=== PATIENT | male | born 1925 | race Caucasian/White ===

== ENCOUNTER 2017-02-25 10:02 | Emergency (ER) | payer MEDICARE, OTHER ==
[2017-02-25 10:09] VITALS: BP 125/73
--- NOTE | 2017-02-25 10:17 | EDM.PDOC ---
ED HPI GENERAL MEDICAL PROBLEM - General Chief Complaint: General Stated Complaint: fall, back pain Time Seen by Provider: 02/25/17 10:17 Source of Information: Reports: Patient, Skilled Nursing Records (Limited), Old Records ([facility] EMR. No paper hospital chart available.) History Limitations: Reports: Altered Mental Status - History of Present Illness INITIAL COMMENTS - FREE TEXT/NARRATIVE: The patient was brought to the emergency room via transport vehicle from [facility] in [place] for evaluation of nonspecific upper bilateral lumbar pain. The patient was found on the floor next to his bed by care home staff with the patient stating that he apparently rolled out of bed. He is an extremely poor historian secondary to his Alzheimer's disease. He denies any significant head injury, loss of consciousness, change in mental status, paresthesias, neurological deficits, nausea/emesis, neck/back pain, or other complaints or injuries. Vital signs were stable at time of transfer to this facility. The patient denies any chest pain/pressure, heart flutter, dizziness, orthostasis, orthopnea, diaphoresis, paresthesias, recent decreased exercise tolerance, or any other anginal-type symptoms. No recent history of abdominal pain, heartburn, nausea, diarrhea, melena, gross hematochezia, or any food intolerance, including fatty foods, etc.. The patient also denies any recent fever, cough, wheezing, dyspnea, etc.. Onset: Today, Unknown/Unsure Onset Date: 02/25/17 Duration: Intermittent Location: Reports: Back. Denies: Head, Chest, Pelvis, Upper Extremity, Left, Upper Extremity, Right, Lower Extremity, Left, Lower Extremity, Right, Generalized, Radiates to, Other Quality: Reports: Ache, Same as Previous Episode, Stabbing Severity: Moderate Improves with: Reports: Rest Worsens with: Reports: Movement Context: Reports: Other (As above) Associated Symptoms: Reports: Confusion (Stable chronic). 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) (None) lt back pain Pain Score (Numeric/FACES): 5 - Related Data Allergies Allergy/AdvReac Type Severity Reaction Status Date / Time No Known Allergies Allergy Verified 02/25/17 10:09 Home Meds: Home Meds Acetaminophen [Tylenol Arthritis] 1 tab PO BID@1000,1800 02/25/17 [History] Ascorbate Calcium [Vitamin C] 500 mg PO DAILY@1000 02/25/17 [History] Aspirin/Dipyridamole [Aggrenox 200-25 MG] 1 cap PO BID@1000,1800 02/25/17 [ History] Carvedilol [Coreg] 6.25 mg PO BID@1000,1800 02/25/17 [History] Docusate Sodium 200 mg PO DAILY@1000 02/25/17 [History] Docusate Sodium [Colace] 1 cap PO QPM 02/25/17 [History] Donepezil HCl [Aricept] 10 mg PO QPM 02/25/17 [History] Imiquimod 1 applic TOP Q72H 02/25/17 [History] Levothyroxine [Synthroid] 1 tab PO DAILY@1000 02/25/17 [History] Lisinopril 2.5 mg PO DAILY@1000 02/25/17 [History] Multivitamin [Daily Alyssa] 1 tab PO DAILY@1000 02/25/17 [History] Simvastatin [Zocor] 80 mg PO QPM 02/25/17 [History] Thiamine [Vitamin B-1] 100 mg PO DAILY@1000 02/25/17 [History] metFORMIN [Glucophage] 500 mg PO BID@1000,1800 02/25/17 [History] Past Medical History HEENT History: Reports: Allergic Rhinitis, Hard of Hearing, Impaired Vision, Other (See Below) Other HEENT History: Patient wears glasses Cardiovascular History: Reports: High Cholesterol, Hypertension, PVD, Other ( See Below) Other Cardiovascular History: Bilateral carotid occlusive disease Respiratory History: Reports: Sleep Apnea Genitourinary History: Reports: Chronic Renal Insuffiency, Other (See Below) Other Genitourinary History: Stage III renal insufficiency, diabetic nephropathy Musculoskeletal History: Reports: Osteoarthritis, Osteoporosis Neurological History: Reports: Alzheimers Disease, Parkinson's, TIA Psychiatric History: Reports: Dementia Endocrine/Metabolic History: Reports: Hypothyroidism, Osteoporosis Hematologic History: Reports: Anemia Oncologic (Cancer) History: Reports: Other (See Below) Other Oncologic History: Unknown type of skin cancer Dermatologic History: Reports: Other (See Below) (Actinic keratosis) Social & Family History - Living Situation & Occupation Living situation: Reports: Extended Care Facility ([facility] in [place], skilled care) Occupation: Retired ED ROS GENERAL - Review of Systems Review Of Systems: ROS reveals no pertinent complaints other than HPI. ED EXAM, GENERAL - Physical Exam Exam: See Below Exam Limited By: Altered Mental Status General Appearance: Alert, WD/WN, No Apparent Distress Eye Exam: Right Eye: PERRL (Moderate miosis of the right pupil which is 12 millimeters inside with left pupil about 3 mm in size, moderate bilateral arcus senilis), Bilateral Eye: EOMI, Normal Fundi (Exam difficult secondary to myosis) Ears: Normal Canal, Normal TMs, Hearing Loss (No hearing aids) Nose: Normal Inspection, Normal Mucosa, No Blood Throat/Mouth: Normal Inspection, Normal Lips, Normal Gums, Normal Oropharynx, Normal Voice, No Airway Compromise. No: Normal Teeth (Complete absent lower dentition with no dentures today), Dysphagia, Perioral Cyanosis Head: Atraumatic, Normocephalic. No: Facial Swelling, Facial Tenderness, Sinus Tenderness Neck: Normal Inspection, Supple, Non-Tender, Full Range of Motion. No: Lymphadenopathy (L), Lymphadenopathy (R), Thyromegaly Respiratory/Chest: No Respiratory Distress, Lungs Clear, Normal Breath Sounds, No Accessory Muscle Use, Chest Non-Tender. No: Pleural Rub, Retractions Cardiovascular: Normal Peripheral Pulses, Regular Rate, Rhythm, No Edema, No Gallop, No JVD, No Murmur, No Rub. No: Gallop/S3, Gallop/S4, Friction Rub Peripheral Pulses: 2+: Radial (L), Radial (R), Dorsalis Pedis (L), Dorsalis Pedis (R) GI/Abdominal: Normal Bowel Sounds, Soft, Non-Tender, No Organomegaly, No Distention, No Abnormal Bruit, No Mass, Pelvis Stable. No: Guarding (Male) Exam: Deferred Rectal (Males) Exam: Deferred Back Exam: Full Range of Motion, Paraspinal Tenderness (Mild bilateral paravertebral palpation pain in the upper lumbar region with no deformity or significant spasms). No: CVA Tenderness (L), CVA Tenderness (R), Muscle Spasm, Vertebral Tenderness Extremities: Normal Range of Motion, Non-Tender, Normal Capillary Refill, Pedal Edema (Mild bilateral trace to +1 pedal/pretibial edema with bilateral compression stockings of the lower extremities, 1 cm in diameter superficial abrasion over the left olecranon with no localized tenderness, foreign body, etc.). No: Trena's Sign Neurological: Alert, CN II-XII Intact, Normal Reflexes (Negative Babinski's), No Motor/Sensory Deficits, Confused (Stable by history) Psychiatric: Normal Affect, Normal Mood Skin Exam: Wound/Incision. No: Cyanosis, Diaphoretic, Ecchymosis, Pallor, Petechiae Lymphatic: No Adenopathy Course - Vital Signs Last Recorded V/S: Last Vital Signs Temp 36.1 C 02/25/17 10:03 Pulse 80 02/25/17 10:03 Resp 18 02/25/17 10:03 BP 125/73 02/25/17 10:03 Pulse Ox 97 02/25/17 10:03 Vital Signs - 24 hr 02/25/17 10:03 Temperature [ 36.1 C Temporal] Pulse, 80 Peripheral [ Left Pulse Oximetry] Respiratory 18 Rate Blood Pressure 125/73 [Left Upper Arm ] O2 Sat by Pulse 97 Oximetry - Orders/Labs/Meds Orders: Active Orders 24 hr Category Date Time Status Lumbar Spine 2 or 3V [CR] Stat Exams 02/25/17 10:21 Taken Pelvis 1V or 2V [CR] Stat Exams 02/25/17 10:22 Taken Obtain Past Medical Record [OM.PC] Routine Oth 02/25/17 10:21 Active Labs: None Meds: None - Radiology Interpretation Free Text/Narrative:: X-rays of the lumbar spine, 3 views, shows moderate to severe osteoarthritic and osteoporotic changes including probable old L5 vertebral body compression fracture. Only mild decreased lordosis present X-rays of the pelvis, one view, shows no evidence of fracture or dislocation with moderate osteoarthritic changes noted including bilateral coxarthrosis Departure - Departure Time of Disposition: 12:45 Disposition: DC/Tfer to [facility] Condition: Good Clinical Impression: Alzheimers disease, Hypertension, Diabetes mellitus, Diabetic nephropathy, Hyperlipidemia, Parkinsons disease, Sleep apnea Contusion Qualifiers: Encounter type: initial encounter Contusion area: lower back Qualified Code(s) : S30.0XXA - Contusion of lower back and pelvis, initial encounter Low back pain Qualifiers: Chronicity: acute Back pain laterality: bilateral Sciatica presence: without sciatica Qualified Code(s): M54.5 - Low back pain Osteoarthritis Qualifiers: Osteoarthritis location: multiple joints Osteoarthritis type: primary Qualified Code(s): M15.0 - Primary generalized (osteo)arthritis - Discharge Information Instructions: Contusion, [id number], Head Injury, Adult Referrals: Sheets-Josselin Lyman MD [Primary Care Provider] - Forms: ED Department Discharge Additional Instructions: 1. Follow up with your regular provider in 10-14 days as needed, if symptoms persist. 2. BenGay or equivalent, heating pad, and/or ice packs as directed. 3. Tylenol 650 mg by mouth every 4 hours and/or OTC ibuprofen 2-3 tabs by mouth every 6 hours with food as directed./needed. 4. Continue strict fall precautions 5. Head precautions as directed-see form. - Problem List & Annotations (1) Contusion SNOMED Code(s): 451680549 Code(s): T14.8 - OTHER INJURY OF UNSPECIFIED BODY REGION Status: Acute Priority: High Onset Date: 02/25/17 Annotation/Comment:: Mild contusion of the left elbow and low back with probable mild low back sprain with no significant spasms at this time. Symptomatic relief. No x-rays warranted for the left elbow Qualifiers: Encounter type: initial encounter Contusion area: lower back Qualified Code(s): S30.0XXA - Contusion of lower back and pelvis, initial encounter (2) Low back pain SNOMED Code(s): 192071845 Code(s): M54.5 - LOW BACK PAIN Status: Acute Priority: High Onset Date : 02/25/17 Annotation/Comment:: Minor fall as above. Symptomatic relief as per discharge instructions. No Flexeril or other antispasmodic at this time secondary to patient's baseline organic brain syndrome and risk of fall Qualifiers: Chronicity: acute Back pain laterality: bilateral Sciatica presence: without sciatica Qualified Code(s): M54.5 - Low back pain (3) Osteoarthritis SNOMED Code(s): 283473756 Code(s): M19.90 - UNSPECIFIED OSTEOARTHRITIS, UNSPECIFIED SITE Status: Chronic Priority: Medium Annotation/Comment:: Otherwise stable by patient history Qualifiers: Osteoarthritis location: multiple joints Osteoarthritis type: primary Qualified Code(s): M15.0 - Primary generalized (osteo)arthritis (4) Alzheimers disease SNOMED Code(s): 72428850 Code(s): G30.9 - ALZHEIMER'S DISEASE, UNSPECIFIED Status: Chronic Priority: Medium Annotation/Comment:: Stable by history and under medical therapy Qualifiers: Alzheimer's disease onset: unspecified onset Dementia behavioral disturbance: without behavioral disturbance Qualified Code(s): G30.9 - Alzheimer's disease, unspecified; F02.80 - Dementia in other diseases classified elsewhere without behavioral disturbance (5) Diabetes mellitus SNOMED Code(s): 24396852 Code(s): E11.9 - TYPE 2 DIABETES MELLITUS WITHOUT COMPLICATIONS Status: Chronic Priority: Medium Annotation/Comment:: Stable by history Qualifiers: Diabetes mellitus type: type 2 Diabetes mellitus complication status: with kidney complications Diabetes mellitus group home insulin use: without group home use Chronic kidney disease stage: stage 3 (moderate) (6) Diabetic nephropathy Status: Chronic Priority: Medium Annotation/Comment:: Stable by history Qualifiers: Diabetes mellitus type: type 2 Qualified Code(s): E11.21 - Type 2 diabetes mellitus with diabetic nephropathy (7) Hyperlipidemia SNOMED Code(s): 72736936 Code(s): E78.5 - HYPERLIPIDEMIA, UNSPECIFIED Status: Chronic Priority: Medium Annotation/Comment:: Under therapy with no apparent recent anginal complaints, evidence of syncope today, etc. Qualifiers: Hyperlipidemia type: unspecified Qualified Code(s): E78.5 - Hyperlipidemia , unspecified (8) Hypertension SNOMED Code(s): 87045422 Code(s): I10 - ESSENTIAL (PRIMARY) HYPERTENSION Status: Chronic Priority : Medium Annotation/Comment:: Under good control in the emergency room Qualifiers: Hypertension type: essential hypertension Qualified Code(s): I10 - Essential (primary) hypertension (9) Parkinsons disease SNOMED Code(s): 71300477 Code(s): G20 - PARKINSON'S DISEASE Status: Chronic Priority: Medium Annotation/Comment:: Stable by history (10) Sleep apnea SNOMED Code(s): 76792045 Code(s): G47.30 - SLEEP APNEA, UNSPECIFIED Status: Chronic Priority: Medium Annotation/Comment:: No recent fever or bronchitic type symptoms Qualifiers: Sleep apnea type: unspecified type Qualified Code(s): G47.30 - Sleep apnea , unspecified - Problem List Review Problem List Initiated/Reviewed/Updated: Yes - My Orders Last 24 Hours: My Active Orders 02/25/17 10:21 Lumbar Spine 2 or 3V [CR] Stat Obtain Past Medical Record [OM.PC] Routine 02/25/17 10:22 Pelvis 1V or 2V [CR] Stat - Assessment/Plan Last 24 Hours: My Active Orders 02/25/17 10:21 Lumbar Spine 2 or 3V [CR] Stat Obtain Past Medical Record [OM.PC] Routine 02/25/17 10:22 Pelvis 1V or 2V [CR] Stat Assessment:: As above Plan: As above. Extensive precautions were given to the patient, who is in agreement with the treatment plan. See Patient Instructions for further treatment and plan.
== END 2017-02-25 12:45 ==
LOC: LL.ED 10:02
DX: S30.0XXA Contusion of lower back and pelvis, initial encounter (principal); S50.312A Abrasion of left elbow, initial encounter; G20 Parkinson's disease; F02.80 Dementia in other diseases classified elsewhere, unspecified severity, without behavioral disturbance, psychotic disturbance, mood disturbance, and anxiety; G47.30 Sleep apnea, unspecified; E78.5 Hyperlipidemia, unspecified; M15.0 Primary generalized (osteo)arthritis; E03.9 Hypothyroidism, unspecified; E78.00 Pure hypercholesterolemia, unspecified; I12.9 Hypertensive chronic kidney disease with stage 1 through stage 4 chronic kidney disease, or unspecified chronic kidney disease; N18.3 Chronic kidney disease, stage 3 (moderate); E11.21 Type 2 diabetes mellitus with diabetic nephropathy; G30.9 Alzheimer's disease, unspecified; Z86.73 Personal history of transient ischemic attack (TIA), and cerebral infarction without residual deficits; Z79.82 Long term (current) use of aspirin; Z79.899 Other long term (current) drug therapy; Z79.84 Long term (current) use of oral hypoglycemic drugs; W06.XXXA Fall from bed, initial encounter
CPT/HCPCS: 72100; 72170; 99282; 99284

== ENCOUNTER 2017-03-04 13:49 | Emergency (ER) | payer MEDICARE, OTHER ==
[2017-03-04] MEDS ORDERED: Sodium Chloride 0.9% 10 ML Syringe FLUSH PRN (13:50)
[2017-03-04] MEDS ORDERED: Famotidine 20 MG/2 ML SDV IVPUSH ONE (13:50)
--- NOTE | 2017-03-04 13:55 | EDM.PDOC ---
ED HPI GENERAL MEDICAL PROBLEM - General Chief Complaint: Neurological Problem Stated Complaint: stroke code Time Seen by Provider: 03/04/17 13:49 Source of Information: Reports: Patient, EMS, [facility] Records (Limited), Old Records ([facility] EMR. No paper hospital chart available. ) History Limitations: Reports: Altered Mental Status - History of Present Illness INITIAL COMMENTS - FREE TEXT/NARRATIVE: The patient was brought to the emergency room via ambulance with mayonnaise mixer accompaniment for evaluation of a probable CVA with stroke code called in this facility immediately upon arrival. The patient was last seen at his normal baseline at about noon today, i.e., at lunchtime, with patient subsequently found by the nursing staff at 13:05 hours with the patient found unresponsive and slumped over in his wheelchair. No known history of fall, injury, etc. today , although the patient did have a minor fall on 02/25/17 with minor contusions, mild right shoulder pain, and low back pain/sprain with evaluation in this facility. He is a poor historian secondary to his baseline organic brain syndrome and/or current TIA/CVA. Only limited history obtained from [facility] prior to patient transfer to this facility. No treatment by the paramedics in route with stat Accu-Chek of 113 mg percent taken by the paramedics. No apparent change in his chronic pain, including recent low back pain and right shoulder pain. No apparent recent chest pain or anginal type symptoms. No apparent recent problems anorexia, abdominal pain, gross hematochezia, etc. Also no known history of recent cough, fever, etc.. No history of headaches, visual changes, nausea, seizure activity, stool/urine incontinence, recent medication changes, etc. Onset: Unknown/Unsure Onset Date: 03/04/17 Onset Time: 13:05 Duration: Improving Location: Reports: Back (Stable), Upper Extremity, Right (Right shoulder stable) . Denies: Head, Face, Neck, Chest, Abdomen Quality: Reports: Same as Previous Episode Severity: Mild Improves with: Reports: Rest Worsens with: Reports: Movement Context: Reports: Other (As above) Associated Symptoms: Reports: Confusion (Stable baseline?) Treatments [employer]AT: Reports: Other (see below) (None) - Related Data Allergies Allergy/AdvReac Type Severity Reaction Status Date / Time No Known Allergies Allergy Verified 02/25/17 10:09 Home Meds: Home Meds Acetaminophen [Tylenol Arthritis] 1 tab PO BID@1000,1800 02/25/17 [History] Ascorbate Calcium [Vitamin C] 500 mg PO DAILY@1000 02/25/17 [History] Aspirin/Dipyridamole [Aggrenox 200-25 MG] 1 cap PO BID@1000,1800 02/25/17 [ History] Carvedilol [Coreg] 6.25 mg PO BID@1000,1800 02/25/17 [History] Docusate Sodium 100 mg PO QPM 02/25/17 [History] Docusate Sodium [Colace] 2 cap PO DAILY@1000 02/25/17 [History] Donepezil HCl [Aricept] 10 mg PO QPM 02/25/17 [History] Imiquimod 1 applic TOP Q72H 02/25/17 [History] Levothyroxine [Synthroid] 1 tab PO DAILY@1000 02/25/17 [History] Lisinopril 2.5 mg PO DAILY@1000 02/25/17 [History] Multivitamin [Daily Alyssa] 1 tab PO DAILY@1000 02/25/17 [History] Simvastatin [Zocor] 80 mg PO QPM 02/25/17 [History] Thiamine [Vitamin B-1] 100 mg PO DAILY@1000 02/25/17 [History] metFORMIN [Glucophage] 500 mg PO BID@1000,1800 02/25/17 [History] Acetaminophen 650 mg PO Q4H PRN 03/04/17 [History] Methyl Salicylate/Menthol [Muscle Rub] 1 applic TOP QID PRN 03/04/17 [History] Past Medical History HEENT History: Reports: Allergic Rhinitis, Hard of Hearing, Impaired Vision, Other (See Below) Other HEENT History: Patient wears glasses, chronic anisocoria with larger left pupil Cardiovascular History: Reports: Arrhythmia, High Cholesterol, Hypertension, PVD , Other (See Below) Other Cardiovascular History: Bilateral carotid occlusive disease, PACs, complete right bundle branch block, sinus arrhythmia Respiratory History: Reports: COPD, Sleep Apnea, Other (See Below) Other Respiratory History: COPD by chest x-ray with no current therapy Genitourinary History: Reports: BPH, Chronic Renal Insuffiency, Diabetic Nephropathy, Other (See Below) Other Genitourinary History: Stage III renal insufficiency, diabetic nephropathy Musculoskeletal History: Reports: Back Pain, Chronic, Neck Pain, Chronic, Osteoarthritis, Osteoporosis Neurological History: Reports: Alzheimers Disease, CVA, Parkinson's, TIA, Other (See Below) Other Neuro History: Distant TIA with additional 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 Psychiatric History: Reports: Alzheimers Disease, Dementia Endocrine/Metabolic History: Reports: Hypothyroidism, Osteoporosis Hematologic History: Reports: Anemia Oncologic (Cancer) History: Reports: Other (See Below) Other Oncologic History: Unknown type of skin cancer Dermatologic History: Reports: Other (See Below) (Actinic keratosis) Other Dermatologic History: Actinic keratosis Social & Family History - Recreational Drug Use Recreational Drug Use: No - Living Situation & Occupation Living situation: Reports: Extended Care Facility ([facility] in [place], skilled care) Occupation: Retired ED ROS GENERAL - Review of Systems Review Of Systems: ROS reveals no pertinent complaints other than HPI. ED EXAM, GENERAL - Physical Exam Exam: See Below Exam Limited By: Altered Mental Status General Appearance: No Apparent Distress, Other (Mild sedation initially however alert during early courses of emergency room care) Eye Exam: Left Eye: PERRL (Known chronic anisocoria with left pupil 6 mm in diameter and right pupil 3 mm in diameter, moderate arcus senilis, patient wearing glasses), Bilateral Eye: EOMI, Normal Fundi Ears: Normal Canal, Normal TMs, Hearing Loss (No hearing aids with stable bilateral mild presbycusis) Nose: Normal Inspection, Normal Mucosa, No Blood Throat/Mouth: Normal Lips, Normal Gums, Normal Oropharynx, Normal Voice, No Airway Compromise, Other (No evidence of tongue biting or injury). No: Normal Teeth (Complete lower dentures), Dysphagia, Perioral Cyanosis Head: Atraumatic, Normocephalic. No: Facial Swelling, Facial Tenderness, Sinus Tenderness Neck: Supple Respiratory/Chest: No Respiratory Distress, Lungs Clear, Normal Breath Sounds, No Accessory Muscle Use, Chest Non-Tender. No: Pleural Rub, Retractions Cardiovascular: No Gallop, No JVD, No Murmur, No Rub, Extra Beats (PACs with occasional threatening atrial fibrillation?), Other (Mild sinus arrhythmia as below). No: No Edema (Dependent edema as below), Gallop/S3, Gallop/S4, Friction Rub Peripheral Pulses: 2+: Radial (L), Radial (R), Dorsalis Pedis (L), Dorsalis Pedis (R) GI/Abdominal: Normal Bowel Sounds, Soft, Non-Tender, No Organomegaly, No Distention, No Abnormal Bruit, No Mass, Pelvis Stable. No: Guarding (Male) Exam: Deferred Rectal (Males) Exam: Deferred Back Exam: Normal Inspection, Full Range of Motion. No: CVA Tenderness (L), CVA Tenderness (R), Muscle Spasm Extremities: Normal Range of Motion, Non-Tender (No palpation pain however some mild right shoulder pain with range of motion), Normal Capillary Refill, Pedal Edema (Trace pedal/pretibial edema bilaterally with ineffective support stockings present), Limited Range of Motion (Right shouldermild). No: Trena's Sign Neurological: No Motor/Sensory Deficits (Negative Babinski's with patient not able to perform complete neurological exam secondary to baseline organic brain syndrome), Confused (Initially more sedated and confused over back to normal baseline early after arrival to our facility ), Disoriented, Other (Mild resting tremor and cogwheeling, note anisocoria as above, no evidence of right facial hemiparesis, left hemiparesis, or dysarthria/aphasia at time of my initial exam despite history from paramedics and nurses as above) Psychiatric: Normal Affect, Normal Mood Skin Exam: Warm, Dry, Intact, Normal Color, No Rash, Other (Mild actinic keratosis over the left extensor hand surface). No: Diaphoretic, Ecchymosis, Wound/Incision Lymphatic: No Adenopathy EKG INTERPRETATION EKG Date: 03/04/17 Time: 13:55 Rhythm: Other (Sinus arrhythmia with PACs) Rate (Beats/Min): 64 [place]: Normal (Neutral cardiac axis) P-Wave: Enlarged (Mild diffuse biphasic P waves with pulmonary hypertension by EKG) QRS: RBBB (QRS interval of 0.13 seconds representing a complete right bundle branch block with T-wave inversion in lead V1) ST-T: Normal QT: Normal IA/PQ Interval: IA interval is 0.18 seconds Comparison: No Change (09/23/15) EKG Interpretation Comments: 1. No acute ischemic changes 2. Complete right bundle branch block 3. PACs Course - Vital Signs Last Recorded V/S: See scanned Stroke Code form. - Orders/Labs/Meds Orders: Active Orders 24 hr Category Date Time Status Cardiac Monitoring [RC] STAT Care 03/04/17 13:50 Active EKG Documentation Completion [RC] ASDIRECTED Care 03/04/17 13:50 Active NIH Stroke Scale [RC] ASDIRECTED Care 03/04/17 13:50 Active Oxygen Therapy, ED [RC] CONTINUOUS Care 03/04/17 13:50 Active Peripheral IV Care [RC] . DIRECTED Care 03/04/17 13:50 Active Pulse Oximetry [RC] CONTINUOUS Care 03/04/17 13:50 Active Up With Assistance [RC] ASDIRECTED Care 03/04/17 13:50 Active Vital Signs [RC] PFP Care 03/04/17 13:50 Active Nothing per Oral Now Diet [DIET] Diet 03/04/17 Breakfast Active Chest 1V Frontal [CR] Stat Exams 03/04/17 13:50 Taken Head wo Cont [CT] Stat Exams 03/04/17 13:50 Taken PROLACTIN [REF] Stat Lab 03/04/17 13:50 Ordered Sodium Chloride 0.9% [Saline Flush] Med 03/04/17 13:50 Active 10 ml FLUSH ASDIRECTED PRN Obtain Past Medical Record [OM.PC] Stat Oth 03/04/17 13:50 Active Peripheral IV Insertion Adult [OM.PC] Stat Oth 03/04/17 13:50 Ordered Resuscitation Status Stat Resus Stat 03/04/17 13:50 Ordered Medication Orders Sodium Chloride (Saline Flush) 10 ml FLUSH ASDIRECTED PRN PRN Reason: Keep Vein Open Labs: Laboratory Tests 03/04/17 03/04/17 03/04/17 Range/Units 13:50 14:20 14:20 WBC 6.2 (4.0-10.2) K/uL RBC 2.92 L (4.33-5.41) M/uL Hgb 10.1 L (13.1-16.8) g/dL Hct 30.9 L (39.0-49.0) % MCV 105.8 H (84.0-98.0) fL MCH 34.6 H (28.2-33.3) pg MCHC 32.7 (31.7-36.0) g/dL RDW 12.1 (11.2-14.1) % Plt Count 179 (150-350) K/uL Neut % (Auto) 61.7 (45.0-80.0) % Lymph % (Auto) 23.5 (10.0-50.0) % [place] % (Auto) 9.1 (2.0-14.0) % Eos % (Auto) 5.2 H (0.0-5.0) % Baso % (Auto) 0.5 (0.0-2.0) % Neut # (Auto) 3.82 (1.40-7.00) K/uL Lymph # (Auto) 1.45 (0.50-3.50) K/uL [place] # (Auto) 0.56 (0.00-1.00) K/uL Eos # (Auto) 0.32 (0.00-0.50) K/uL Baso # (Auto) 0.03 (0.00-0.20) K/uL PT 10.7 (9.8-11.7) SEC INR 1.0 APTT 25.7 (23.5-30.0) SEC D-Dimer, Quantitative 619 H (0-400) ng/mL Sodium (136-145) mmol/L Potassium (3.5-5.1) mmol/L Chloride (98-107) mmol/L Carbon Dioxide (21.0-32.0) mmol/L BUN (7-18) mg/dL Creatinine (0.51-1.17) mg/dL Est Cr Clr Drug Dosing Estimated GFR (MDRD) mL/min Glucose (74-106) mg/dL Lactic Acid (0.4-2.0) mmol/L Uric Acid (2.6-7.2) mg/dL Calcium (8.5-10.1) mg/dL Magnesium (1.8-2.4) mg/dL Total Bilirubin (0.2-1.0) mg/dL AST (15-37) U/L ALT (12-78) U/L Alkaline Phosphatase (46-116) IU/L Creatine Kinase (26-308) U/L Creatine Kinase Index (0.0-2.5) % CK-MB (CK-2) (0.00-3.60) ng/mL Troponin I (0.000-0.056) ng/mL Pbh-E-Jgizivnizml Pept (0-125) pg/mL Total Protein (6.4-8.2) g/dL Albumin (3.4-5.0) g/dL TSH, Ultra Sensitive (0.358-3.740) mIU/mL 03/04/17 03/04/17 Range/Units 14:20 14:20 WBC (4.0-10.2) K/uL RBC (4.33-5.41) M/uL Hgb (13.1-16.8) g/dL Hct (39.0-49.0) % MCV (84.0-98.0) fL MCH (28.2-33.3) pg MCHC (31.7-36.0) g/dL RDW (11.2-14.1) % Plt Count (150-350) K/uL Neut % (Auto) (45.0-80.0) % Lymph % (Auto) (10.0-50.0) % [place] % (Auto) (2.0-14.0) % Eos % (Auto) (0.0-5.0) % Baso % (Auto) (0.0-2.0) % Neut # (Auto) (1.40-7.00) K/uL Lymph # (Auto) (0.50-3.50) K/uL [place] # (Auto) (0.00-1.00) K/uL Eos # (Auto) (0.00-0.50) K/uL Baso # (Auto) (0.00-0.20) K/uL PT (9.8-11.7) SEC INR APTT (23.5-30.0) SEC D-Dimer, Quantitative (0-400) ng/mL Sodium 142 (136-145) mmol/L Potassium 4.9 (3.5-5.1) mmol/L Chloride 109 H (98-107) mmol/L Carbon Dioxide 23.4 (21.0-32.0) mmol/L BUN 30 H (7-18) mg/dL Creatinine 1.05 (0.51-1.17) mg/dL Est Cr Clr Drug Dosing TNP Estimated GFR (MDRD) > 60 mL/min Glucose 118 H (74-106) mg/dL Lactic Acid 1.5 (0.4-2.0) mmol/L Uric Acid 7.8 H (2.6-7.2) mg/dL Calcium 8.7 (8.5-10.1) mg/dL Magnesium 1.7 L (1.8-2.4) mg/dL Total Bilirubin 0.4 (0.2-1.0) mg/dL AST 19 (15-37) U/L ALT 16 (12-78) U/L Alkaline Phosphatase 85 (46-116) IU/L Creatine Kinase 36 (26-308) U/L Creatine Kinase Index 0.8 (0.0-2.5) % CK-MB (CK-2) 0.30 (0.00-3.60) ng/mL Troponin I 0.009 (0.000-0.056) ng/mL Zds-Y-Irfednmzefg Pept 480 H (0-125) pg/mL Total Protein 6.6 (6.4-8.2) g/dL Albumin 3.1 L (3.4-5.0) g/dL TSH, Ultra Sensitive 1.735 (0.358-3.740) mIU/mL Meds: Medications Generic Name Dose Route Start Last Admin Trade Name Freq PRN Reason Stop Dose Admin Sodium Chloride 10 ml 03/04/17 13:50 Saline Flush FLUSH ASDIRECTED PRN Keep Vein Open Discontinued Medications Generic Name Dose Route Start Last Admin Trade Name Freq PRN Reason Stop Dose Admin Famotidine 40 mg 03/04/17 13:50 03/04/17 14:06 Pepcid IVPUSH 03/04/17 13:51 40 mg ONETIME ONE Administration - Radiology Interpretation Free Text/Narrative:: Heart monitor shows some sinus arrhythmia, including occasional borderline threatening atrial fibrillation with frequent PACs and occasional mild bradycardia with heart rates averaging in the high 50s to low 60s. Chest x-ray, portable, shows evidence of moderate cardiomegaly and mild aortic valve calcification with moderate COPD changes and probable pulmonary hypertension and/or mild centralized CHF. No pulmonary infiltrates, pneumothorax , etc. Telephone consultation at 14:23 hours with the radiology department at [facility] with verbal report of noncontrast CT scan of the head. There is evidence of some mild subacute versus chronic right thalamus infarction type changes, which are new since last MRI of the brain in September 2015. No evidence of acute infarct, cerebral hemorrhages, etc. CT Results Date: 03/04/17 CT Results Time: 14:23 Departure - Departure Time of Disposition: 16:04 Disposition: DC/Tfer to Acute Hospital 02 Condition: Fair Clinical Impression: Parkinsons disease, Hyperuricemia, Heart disease, Hypomagnesemia, Hypoalbuminemia, D-dimer, elevated Stroke Qualifiers: CVA mechanism: unspecified Qualified Code(s): I63.9 - Cerebral infarction, unspecified Transient ischemic attack (TIA) Qualifiers: Transient cerebral ischemia type: unspecified Qualified Code(s): G45.9 - Transient cerebral ischemic attack, unspecified Alzheimers disease Qualifiers: Alzheimer's disease onset: unspecified onset Dementia behavioral disturbance: without behavioral disturbance Qualified Code(s): G30.9 - Alzheimer's disease, unspecified Hyperlipidemia Qualifiers: Hyperlipidemia type: unspecified Qualified Code(s): E78.5 - Hyperlipidemia, unspecified Osteoarthritis Qualifiers: Osteoarthritis location: multiple joints Osteoarthritis type: primary Qualified Code(s): M15.0 - Primary generalized (osteo)arthritis Hypertension Qualifiers: Hypertension type: essential hypertension Qualified Code(s): I10 - Essential ( primary) hypertension Sleep apnea Qualifiers: Sleep apnea type: unspecified type Qualified Code(s): G47.30 - Sleep apnea, unspecified Diabetes mellitus Qualifiers: Diabetes mellitus type: type 2 Diabetes mellitus complication status: with kidney complications Diabetes mellitus complication detail: with chronic kidney disease Diabetes mellitus surgery specialist insulin use: without surgery specialist use Chronic kidney disease stage: stage 3 (moderate) Qualified Code(s): E11.22 - Type 2 diabetes mellitus with diabetic chronic kidney disease Diabetic nephropathy Qualifiers: Diabetes mellitus type: type 2 Qualified Code(s): E11.21 - Type 2 diabetes mellitus with diabetic nephropathy Anemia Qualifiers: Anemia type: unspecified type Qualified Code(s): D64.9 - Anemia, unspecified - Discharge Information Referrals: PCP,Unknown [Primary Care Provider] - Forms: ED Department Discharge, Interfacility Transfer EMTALA - Problem List & Annotations (1) Stroke SNOMED Code(s): 127910239 Code(s): I63.9 - CEREBRAL INFARCTION, UNSPECIFIED Status: Acute Priority : High Current Visit: Yes Onset Date: 03/04/17 Annotation/Comment:: Stroke code called in this facility immediately upon arrival to our emergency room as above. Telephone consultation with the patient's , who had difficulty deciding which hospital to transfer the patient, however they did decide to go to [facility] in [place]. Subsequent telephone consultation at 14:[address] Dias, neurologist at [facility] in [place], with no further treatment recommendations given. She does agree to consult the hospitalist concerning this patient after admission into their facility. Subsequent telephone consultation at 14:[address] Hernandez, hospitalist at [facility], who does accept the patient for direct admission. No further treatment recommendations given. Some delay in patient transfer secondary to ambulance availability with no sequelae. Neurological status and vital signs stable at time of transfer. The patient was back to his normal baseline mental/neurological status shortly after arrival with stable known anisoc Qualifiers: CVA mechanism: unspecified Qualified Code(s): I63.9 - Cerebral infarction, unspecified (2) Transient ischemic attack (TIA) SNOMED Code(s): 313721063, 516906167 Code(s): G45.9 - TRANSIENT CEREBRAL ISCHEMIC ATTACK, UNSPECIFIED Status: Acute Priority: High Current Visit: Yes Annotation/Comment:: Probable current TIA secondary to rapidly improving symptoms by history as above. Note distant known previous TIA with apparent previous right thalamic CVA since last MRI in September 2015 as above Qualifiers: Transient cerebral ischemia type: unspecified Qualified Code(s): G45.9 - Transient cerebral ischemic attack, unspecified (3) Heart disease SNOMED Code(s): 71058852 Code(s): I51.9 - HEART DISEASE, UNSPECIFIED Status: Chronic Priority: Medium Current Visit: Yes Annotation/Comment:: History of PACs, sinus arrhythmia and right bundle branch block with her lying threatening atrial fibrillation by telemetry in the emergency room today. No apparent recent chest pain or anginal type symptoms. Despite mild BNP elevation no significant evidence of CHF by clinical exam or chest x-ray, although note cardiomegaly by chest x-ray. Patient may benefit from an echocardiogram secondary to his recurrent TIAs, arrhythmia, cardiomegaly, etc. as above (4) Hyperuricemia SNOMED Code(s): 02694694 Code(s): E79.0 - HYPERURICEMIA W/O SIGNS OF INFLAM ARTHRIT AND TOPHACEOUS DIS Status: Acute Priority: Medium Current Visit: Yes Onset Date: Annotation/Comment:: Newly diagnosed hyperuricemia today with no history of gout attacks or significant change in his arthritic type symptoms (5) Alzheimers disease SNOMED Code(s): 75741359 Code(s): G30.9 - ALZHEIMER'S DISEASE, UNSPECIFIED Status: Chronic Priority: Medium Current Visit: Yes Annotation/Comment:: Stable and back to normal baseline at time of discharge Qualifiers: Alzheimer's disease onset: unspecified onset Dementia behavioral disturbance: without behavioral disturbance Qualified Code(s): G30.9 - Alzheimer's disease, unspecified; F02.80 - Dementia in other diseases classified elsewhere without behavioral disturbance (6) Diabetes mellitus SNOMED Code(s): 00796020 Code(s): E11.9 - TYPE 2 DIABETES MELLITUS WITHOUT COMPLICATIONS Status: Chronic Priority: Medium Current Visit: Yes Annotation/Comment:: Stable by history. Note normal stat Accu-Chek by paramedics as above Qualifiers: Diabetes mellitus type: type 2 Diabetes mellitus complication status: with kidney complications Diabetes mellitus complication detail: with chronic kidney disease Diabetes mellitus surgery specialist insulin use: without surgery specialist use Chronic kidney disease stage: stage 3 (moderate) Qualified Code(s): E11.22 - Type 2 diabetes mellitus with diabetic chronic kidney disease; N18.3 - Chronic kidney disease, stage 3 (moderate) (7) Diabetic nephropathy Status: Chronic Priority: Medium Current Visit: Yes Annotation/Comment:: Stable by history Qualifiers: Diabetes mellitus type: type 2 Qualified Code(s): E11.21 - Type 2 diabetes mellitus with diabetic nephropathy (8) Hyperlipidemia SNOMED Code(s): 00640518 Code(s): E78.5 - HYPERLIPIDEMIA, UNSPECIFIED Status: Chronic Priority: Medium Current Visit: Yes Annotation/Comment:: Under therapy with no apparent recent anginal complaints, etc. Qualifiers: Hyperlipidemia type: unspecified Qualified Code(s): E78.5 - Hyperlipidemia , unspecified (9) Hypertension SNOMED Code(s): 93310873 Code(s): I10 - ESSENTIAL (PRIMARY) HYPERTENSION Status: Chronic Priority : Medium Current Visit: Yes Annotation/Comment:: Under good control in the emergency room Qualifiers: Hypertension type: essential hypertension Qualified Code(s): I10 - Essential (primary) hypertension (10) Osteoarthritis SNOMED Code(s): 351659288 Code(s): M19.90 - UNSPECIFIED OSTEOARTHRITIS, UNSPECIFIED SITE Status: Chronic Priority: Medium Current Visit: Yes Annotation/Comment:: Otherwise stable by patient history, note recent fall with exacerbation of his chronic low back pain and right shoulder pain. In addition, new diagnosis of hyperuricemia with no history of gout attacks Qualifiers: Osteoarthritis location: multiple joints Osteoarthritis type: primary Qualified Code(s): M15.0 - Primary generalized (osteo)arthritis (11) Parkinsons disease SNOMED Code(s): 72033467 Code(s): G20 - PARKINSON'S DISEASE Status: Chronic Priority: Medium Current Visit: Yes Annotation/Comment:: Stable by history (12) Sleep apnea SNOMED Code(s): 05236941 Code(s): G47.30 - SLEEP APNEA, UNSPECIFIED Status: Chronic Priority: Medium Current Visit: Yes Annotation/Comment:: No recent fever or bronchitic type symptoms Qualifiers: Sleep apnea type: unspecified type Qualified Code(s): G47.30 - Sleep apnea , unspecified (13) Anemia SNOMED Code(s): 947215386 Code(s): D64.9 - ANEMIA, UNSPECIFIED Status: Chronic Priority: Medium Current Visit: Yes Onset Date: ~03/04/17 Annotation/Comment:: Moderate anemia today with macrocytosis and history of known chronic renal disease. Further workup depending on his clinical course. No recent history of abdominal pain, evidence of acute GI bleed, etc. Qualifiers: Anemia type: unspecified type Qualified Code(s): D64.9 - Anemia, unspecified (14) Hypoalbuminemia SNOMED Code(s): 671219980 Code(s): E88.09 - [facility] DISORDERS OF PLASMA-PROTEIN METABOLISM, NEC Status: Acute Priority: Medium Current Visit: Yes Onset Date: ~03/04/17 Annotation/Comment:: Consider high-protein Glucerna supplements (15) Hypomagnesemia SNOMED Code(s): 418688800 Code(s): E83.42 - HYPOMAGNESEMIA Status: Acute Priority: Medium Current Visit: Yes Onset Date: ~03/04/17 Annotation/Comment:: Consider magnesium oxide supplementation with caution secondary to his organic brain syndrome and renal disease (16) D-dimer, elevated SNOMED Code(s): 663163699 Code(s): R79.89 - OTHER SPECIFIED ABNORMAL FINDINGS OF BLOOD CHEMISTRY Status: Acute Priority: High Current Visit: Yes Onset Date: 03/04/17 Annotation/Comment:: Note D-dimer elevation likely secondary to CVA/TIA. No clinical evidence of PE or DVT with further workup depending on clinical course. Consider CTA of chest, carotic doppler studies, etc. - Problem List Review Problem List Initiated/Reviewed/Updated: Yes - My Orders Last 24 Hours: My Active Orders 03/04/17 13:50 Cardiac Monitoring [RC] STAT EKG Documentation Completion [RC] ASDIRECTED NIH Stroke Scale [RC] ASDIRECTED Oxygen Therapy, ED [RC] CONTINUOUS Peripheral IV Care [RC] . DIRECTED Pulse Oximetry [RC] CONTINUOUS Up With Assistance [RC] ASDIRECTED Vital Signs [RC] PFP Chest 1V Frontal [CR] Stat Head wo Cont [CT] Stat PROLACTIN [REF] Stat Sodium Chloride 0.9% [Saline Flush] 10 ml FLUSH ASDIRECTED PRN Obtain Past Medical Record [OM.PC] Stat Peripheral IV Insertion Adult [OM.PC] Stat Resuscitation Status Stat 03/04/17 Breakfast Nothing per Oral Now Diet [DIET] - Assessment/Plan Last 24 Hours: My Active Orders 03/04/17 13:50 Cardiac Monitoring [RC] STAT EKG Documentation Completion [RC] ASDIRECTED NIH Stroke Scale [RC] ASDIRECTED Oxygen Therapy, ED [RC] CONTINUOUS Peripheral IV Care [RC] . DIRECTED Pulse Oximetry [RC] CONTINUOUS Up With Assistance [RC] ASDIRECTED Vital Signs [RC] PFP Chest 1V Frontal [CR] Stat Head wo Cont [CT] Stat PROLACTIN [REF] Stat Sodium Chloride 0.9% [Saline Flush] 10 ml FLUSH ASDIRECTED PRN Obtain Past Medical Record [OM.PC] Stat Peripheral IV Insertion Adult [OM.PC] Stat Resuscitation Status Stat 03/04/17 Breakfast Nothing per Oral Now Diet [DIET] Assessment:: As above Plan: As above. Extensive precautions were given to the patient and his , who are in agreement with the treatment plan. Ambulance transfer to [place] with mayonnaise mixer accompaniment
[2017-03-04 14:48] LABS: CHLORIDE,CL 109 mmol/L (98-107); SODIUM,NA 142 mmol/L (136-145)
== END 2017-03-04 16:04 ==
LOC: LL.ED 13:49
DX: I63.9 Cerebral infarction, unspecified (principal); G45.9 Transient cerebral ischemic attack, unspecified; G30.9 Alzheimer's disease, unspecified; E78.5 Hyperlipidemia, unspecified; M15.0 Primary generalized (osteo)arthritis; G47.30 Sleep apnea, unspecified; E11.22 Type 2 diabetes mellitus with diabetic chronic kidney disease; E11.21 Type 2 diabetes mellitus with diabetic nephropathy; D64.9 Anemia, unspecified; H54.7 Unspecified visual loss; E78.00 Pure hypercholesterolemia, unspecified; I10 Essential (primary) hypertension; J44.9 Chronic obstructive pulmonary disease, unspecified; N18.9 Chronic kidney disease, unspecified; E11.40 Type 2 diabetes mellitus with diabetic neuropathy, unspecified; E03.9 Hypothyroidism, unspecified; Z79.899 Other long term (current) drug therapy; Z79.82 Long term (current) use of aspirin
CPT/HCPCS: 36415; 70450; 71010; 80053; 82550; 82553; 83605; 83735; 83880; 84146; 84443; 84484; 84550; 85025; 85379; 85610; 85730; 93005; 96374; 99285; 99291; 99292; S0028